=== PATIENT | female | born 1940 | race Caucasian/White ===

== ENCOUNTER 2016-08-16 23:31 | Emergency (ER) | payer MEDICARE ==
[2016-08-17] MEDS ORDERED: IBUPROFEN 600 MG TABLET ONE (01:58)
[2016-08-17] MEDS ORDERED: ACETAMINOPHEN 325 MG TABLET ONE (01:58)
[2016-08-17] MEDS ORDERED: DIAZEPAM 5 MG TABLET ONE (01:59)
[2016-08-17 03:24] LABS: CALCIUM 9.4 mg/dL (8.6-10.3)
[2016-08-17 05:12] LABS: CREATININE,RANDOM URINE 93 mg/dL
[2016-08-18 04:39] LABS: OSMOLALITY 271; OSMOLALITY,URINE 365
== END 2016-08-17 07:37 | disposition home or self-care (01) ==
LOC: ED 23:31
DX: M54.9 Dorsalgia, unspecified (principal); R05 Cough; E78.5 Hyperlipidemia, unspecified; E78.00 Pure hypercholesterolemia, unspecified
CPT/HCPCS: 82570; 80048; 83930; 83935; 84300; 99283 ×2; A9270 ×3